=== PATIENT | female | born 1960 | race Caucasian/White ===

== ENCOUNTER 2017-12-26 13:47 | Inpatient (IN) | payer OTHER ==
[~2017-12-26] VITALS: Ht 149.9 cm; Wt 61.8 kg
[2017-12-26 13:55] VITALS: Ht 149.9 cm; Wt 61.8 kg
[2017-12-26] MEDS ORDERED: SIMVASTATIN20 M1 PO (17:18)
[2017-12-26] MEDS ORDERED: ZOMETA4 MG/100 M IV ×2 (17:19→17:21)
[2017-12-26] MEDS ORDERED: GABAPENTIN100 M2 PO (17:21)
[2017-12-26] MEDS ORDERED: CARDIZEM CD180 MG PO (17:22)
[2017-12-26] MEDS ORDERED: DULOXETINE60 MG PO (17:22)
[2017-12-26] MEDS ORDERED: HUMALOG100 UNIT/1 SQ (17:23)
[2017-12-26] MEDS ORDERED: HUMALOG100 U/ML SC (17:24)
[2017-12-26] MEDS ORDERED: ASPIR 8181 MG PO (17:24)
[2017-12-26] MEDS ORDERED: FEMARA2.5 MG PO (17:25)
[2017-12-26] MEDS ORDERED: SINGULAIR10 MG PO (17:25)
[2017-12-26 18:16] LABS: PLATELET COUNT 259 x10^3mcL (130-400); RED CELL DISTRIBUTION WIDTH 13.4 % (11.5-14.5)
[2017-12-26 18:28] LABS: CALCIUM 8.8 mg/dL (8.5-10.1); CARBON DIOXIDE 31.9 mmol/L (21-32); CHLORIDE SERUM 106 mmol/L (98-107); CREATININE SERUM 0.5 mg/dL (0.6-1.0); GFR1 > 60 mL/min; GLUCOSE SERUM 126 mg/dL (74-106); POTASSIUM SERUM 3.7 mmol/L (3.5-5.1); SODIUM SERUM 142 mmol/L (136-145)
[2017-12-26 18:34] VITALS: BP 124/82
[2017-12-26 18:38] LABS: ALBUMIN 3.7 g/dL (3.4-5.0); ALKALINE PHOSPHATASE 88 U/L (46-116); ALT/SGPT 21 U/L (14-59); AST/SGOT 18 U/L (15-37); BILIRUBIN TOTAL 0.5 mg/dL (0.20-1.00); T4(THYROXINE) 6.1 ug/dL (4.7-13.3); TOTAL PROTEIN, SERUM 6.9 g/dL (6.4-8.2)
[2017-12-26 18:43] LABS: CK-MB < 0.5 ng/mL (0-3.6); CREATINE KINASE 88 U/L (26-192)
[2017-12-26 19:17] LABS: CHOLESTEROL/HDL RATIO 2.2; PHOSPHOROUS 2.8 mg/dL (2.5-4.9)
[2017-12-26 19:20] LABS: T3 TOTAL 0.93 ng/mL
[2017-12-26 19:23] LABS: FREE T4 0.89 ng/dL (0.76-1.46); FREE THYROXINE INDEX 2.2 ug/dL (1.4-4.5); T4(THYROXINE) 6.8 ug/dL (4.7-13.3)
[2017-12-26 21:56] VITALS: BP 131/75
[2017-12-27 05:44] VITALS: BP 111/58
[2017-12-27 06:39] LABS: CALCIUM 9.2 mg/dL (8.5-10.1); CARBON DIOXIDE 32.3 mmol/L (21-32); CHLORIDE SERUM 106 mmol/L (98-107); CREATININE SERUM 0.6 mg/dL (0.6-1.0); GFR1 > 60 mL/min; GLUCOSE SERUM 77 mg/dL (74-106); POTASSIUM SERUM 3.7 mmol/L (3.5-5.1); SODIUM SERUM 144 mmol/L (136-145)
[2017-12-27 06:51] LABS: BASOPHIL % 1.2 % (0-2); PLATELET COUNT 266 x10^3mcL (130-400); RED CELL DISTRIBUTION WIDTH 13.4 % (11.5-14.5)
[2017-12-27 08:00] VITALS: BP 123/62
[2017-12-27 12:26] LABS: microscopic required? NO
[2017-12-27 12:38] LABS: UA SPECIFIC GRAVITY <=1.005 (1.005-1.035); urine erythrocyte NEGATIVE (NEGATIVE)
[2017-12-27 12:57] LABS: AMPHETAMINE QUAL UR NONE DETECTED (See below)
[2017-12-27 14:25] VITALS: BP 114/63
[2017-12-27 17:36] VITALS: BP 121/70
[2017-12-27 22:35] VITALS: BP 118/68
[2017-12-28 05:27] VITALS: BP 116/68
[2017-12-28 09:15] VITALS: BP 111/80; BP 116/60
[2017-12-28 11:53] VITALS: BP 116/60
== END 2017-12-28 13:05 | disposition home or self-care (01) | DRG 392 ==
LOC: ED 13:47 → DU 17:45
PROVIDERS: Emergency Medicine; Family Medicine
DX: K21.9 Gastro-esophageal reflux disease without esophagitis (principal); Z96.41 Presence of insulin pump (external) (internal); I48.91 Unspecified atrial fibrillation; E10.51 Type 1 diabetes mellitus with diabetic peripheral angiopathy without gangrene; E10.65 Type 1 diabetes mellitus with hyperglycemia; J45.909 Unspecified asthma, uncomplicated; Z92.3 Personal history of irradiation; Z79.4 Long term (current) use of insulin; Z79.82 Long term (current) use of aspirin; Z79.899 Other long term (current) drug therapy; Z68.27 Body mass index [BMI] 27.0-27.9, adult; Z85.3 Personal history of malignant neoplasm of breast
CPT/HCPCS: 36600; 82962; 83880; 84439; J1940; J7620; Q0092